=== PATIENT | female | born 1990 | race Caucasian/White ===

== ENCOUNTER 2024-03-10 08:19 | Emergency (ER) | payer BC, MEDICAID ==
[~2024-03-10] VITALS: Ht 172.7 cm; Wt 108.9 kg
[2024-03-10 08:29] VITALS: BP 130/87; PULSE 82; RESP 20; TEMP 97.6; O2SAT 98
[2024-03-10 09:26] LABS: BASOPHILS % (AUTO) 0.2 % (0.0-2.0); EOSINOPHILS % (AUTO) 0.1 % (0.0-4.0); HEMATOCRIT 39.8 % (36-48); HEMOGLOBIN 13.3 g/dL (12.0-16.0); LYMPHOCYTES # (AUTO) 0.3 K/uL (2.5-16.5); LYMPHOCYTES % (AUTO) 4.6 % (20.5-51.1); MEAN CORPUSCULAR HEMOGLOBIN 30 pg (27-31); MEAN CORPUSCULAR HGB CONC 33 g/dL (33-37); MONOCYTES # (AUTO) 0.2 K/uL (0.8-1.0); MONOCYTES % (AUTO) 2.4 % (1.7-9.3); NEUTROPHILS # (AUTO) 6.8 K/uL (1.8-7.7); NEUTROPHILS % (AUTO) 92.7 % (42.2-75.2); PLATELET COUNT (AUTO) 197 K/uL (140-450); RED BLOOD CELL COUNT(AUTO) 4.47 MIL/uL (4.20-5.40); RED CELL DISTRIBUTION WIDTH 14.3 % (11.6-13.7); WHITE BLOOD COUNT (AUTO) 7.4 K/uL (4.8-10.8)
[2024-03-10] MEDS: ONDANSETRON 4 MG/2 ML VIAL IVP ONE (09:37)
[2024-03-10] MEDS: MORPHINE SULFATE 4 MG/ML SYR IVP ONE (09:37)
[2024-03-10 10:08] LABS: ANION GAP 23.2 (8-16); CALCIUM 8.7 mg/dL (8.5-10.1); CARBON DIOXIDE 18.5 mmol/L (21-32); CREATININE 0.9 mg/dL (0.6-1.3); POTASSIUM 3.7 mmol/L (3.5-5.1)
[2024-03-10 10:12] LABS: ALBUMIN 4.3 g/dL (3.4-5.0); BILIRUBIN,DIRECT 0.1 mg/dL (0.0-0.3); TOTAL BILIRUBIN 0.5 mg/dL (0.0-1.0); TOTAL PROTEIN, SERUM 8.3 g/dL (6.4-8.2)
[2024-03-10 10:57] LABS: APPEARANCE,URINE CLEAR (CLEAR); BILIRUBIN,URINE NEGATIVE (NEGATIVE); BLOOD, URINE 3+ (NEGATIVE); COLOR,URINE YELLOW (YELLOW); LEUKOCYTE ESTERASE ,URINE TRACE (NEGATIVE); NITRITE, URINE POSITIVE (NEGATIVE); PROTEIN,URINE 1+ (NEGATIVE); UGLUCOSE NEGATIVE (NEGATIVE); UROBILINOGEN,URINE 0.2 EU/dL (0.2 - 1)
[2024-03-10 11:05] LABS: BACTERIA,URINE 4+ /HPF (None Seen); RBC,URINE 11-20 (MOD) /HPF (0-5)
[2024-03-10 11:06] LABS: MUCUS,URINE 3+ /LPF (None Seen); SQUAMOUS EPITHELIAL CELL,UR 0-3 (FEW) /LPF (0-3 (FEW))
[2024-03-10] MEDS: KETOROLAC 30 MG/ML VIAL IVP ONE (11:06)
[2024-03-10] MEDS ORDERED: IBUP-2218 PO (11:20)
[2024-03-10] MEDS ORDERED: CEPH-588 PO (11:20)
[2024-03-10] MEDS ORDERED: ACET-8905 PO (11:20)
[2024-03-10] MEDS ORDERED: TAMS0.4C96 PO (11:20)
[2024-03-10 11:46] VITALS: BP 128/85; PULSE 91; RESP 14; TEMP 97.6; O2SAT 96
[2024-03-10] MEDS ORDERED: HYDR-5071 PO (14:28)
== END 2024-03-10 11:46 | disposition home or self-care (01) ==
LOC: MED 08:19
DX: N20.0 Calculus of kidney (principal); N39.0 Urinary tract infection, site not specified; K80.20 Calculus of gallbladder without cholecystitis without obstruction; N83.202 Unspecified ovarian cyst, left side; R03.0 Elevated blood-pressure reading, without diagnosis of hypertension; Z79.1 Long term (current) use of non-steroidal anti-inflammatories (NSAID); Z79.899 Other long term (current) drug therapy
CPT/HCPCS: 36415; 74176; 80048; 80076; 81001; 83690; 84703; 85025; 87086; 96374; 96375; 99285; J1885; J2270; J2405; 87186

== ENCOUNTER 2024-05-03 11:09 | Emergency (ER) | payer BC, MEDICAID ==
[~2024-05-03] VITALS: Ht 167.6 cm; Wt 99.8 kg
[~2024-05-03 11:09] MED LIST: CEPH-588 PO; HYDR-5071 PO; IBUP-2218 PO; TAMS0.4C96 PO
[2024-05-03 11:20] VITALS: BP 163/87; PULSE 92; RESP 20; TEMP 97.3; O2SAT 97
[2024-05-03] MEDS: LORazepam 1 MG TAB PO ONE (11:56)
== END 2024-05-03 12:20 | disposition left against medical advice (07) ==
LOC: MED 11:09
DX: F41.0 Panic disorder [episodic paroxysmal anxiety] (principal); Z79.899 Other long term (current) drug therapy
CPT/HCPCS: 99283